=== PATIENT | female | born 1970 | race Caucasian/White ===

== ENCOUNTER 2018-07-12 02:57 | Emergency (ER) | payer MEDICAID ==
[2018-07-12 03:13] VITALS: TEMP 98.2; O2SAT 98
[2018-07-12] MEDS ORDERED: Sodium Chloride 0.9% 1,000 ML IV SCH (03:30)
--- NOTE | 2018-07-12 03:31 | ED PDOC ---
Arrival/HPI - General Chief Complaint: Abdominal Pain Time Seen by Provider: 07/12/18 03:09 - History of Present Illness Narrative History of Present Illness (Text): 07/12/18 03:26 48 yr old female w/ hx of HLD p/w headache, abdominal pain and chest pain. Pt notes waking up, followed by COFFMAN, mild, not worst of life, not sudden in onset. She notes first time occurence of headache, diffuse, for which she took motrin. She then noticed abdominal pain followed by upgoing chest pain. chest pain feels like a pressure, without radiation. She denies any FND, headache or neck stiffness. No rash. No pleuritic chest pain, hx of pe, blood clots, venous stasis, hx of cancer or surgery recently. No orthopnea, PND or leg swelling. No constipation or diarrhea. No dark or bloody stool. No urinary complaints. LMP was 2 weeks ago, normal. No recent travel. No trauma. No other complaints. Past Medical History - Provider Review Nursing Documentation Reviewed: Yes - Travel History Have you recently traveled outside [place] w/in the past 3 mons?: No - Infectious Disease Hx of Infectious Diseases: None - Cardiac Hx Hypertension: Yes - Psychiatric Hx Substance Use: No - Anesthesia Hx Anesthesia: No Family/Social History - Physician Review Nursing Documentation Reviewed: Yes Family/Social History: Unknown Family HX Smoking Status: Never Smoked Hx Alcohol Use: No Hx Substance Use: No Allergies/Home Meds Allergies/Adverse Reactions: Allergies No Known Allergies Allergy (Verified 07/12/18 03:04) Home Medications: Home Meds Medication Instructions Recorded Confirmed No Known Home Med 07/12/18 07/12/18 Review of Systems - Review of Systems Constitutional: Normal Eyes: Normal ENT: Normal Respiratory: Normal Cardiovascular: Chest Pain. absent: Palpitations, Edema, Calf Pain, CARMEN, Orthopnea, Syncope Gastrointestinal: Abdominal Pain, Vomiting. absent: Stool Changes, Constipation , Diarrhea, Hematochezia, Hematemesis, Anorexia, Food Intolerance Genitourinary Female: Normal Musculoskeletal: Normal Skin: Normal Neurological: Headache. absent: Dizziness, Focal Weakness, Gait Changes, Speech Changes, Facial Droop, Disequilibrium, Seizure Endocrine: Normal Hemo/Lymphatic: Normal Psychiatric: Normal Physical Exam Vital Signs Temp Pulse Resp BP Pulse Ox 07/12/18 03:13 98.2 F 72 17 122/73 98 Temperature: Afebrile Blood Pressure: Normal Pulse: Regular Respiratory Rate: Normal Appearance: Positive for: Well-Appearing, Non-Toxic, Comfortable Pain Distress: None Mental Status: Positive for: Alert and Oriented X 3 - Systems Exam Head: Present: Atraumatic, Normocephalic Pupils: Present: PERRL Extroacular Muscles: Present: EOMI Conjunctiva: Present: Normal Mouth: Present: Moist Mucous Membranes Neck: Present: Normal Range of Motion. No: Meningeal Signs, MIDLINE TENDERNESS , JVD, Lymphadenopathy Respiratory/Chest: Present: Clear to Auscultation, Good Air Exchange. No: Respiratory Distress, Accessory Muscle Use Cardiovascular: Present: Regular Rate and Rhythm, Normal S1, S2. No: Murmurs Abdomen: No: Tenderness, Distention, Peritoneal Signs Back: Present: Normal Inspection. No: CVA Tenderness Upper Extremity: Present: Normal Inspection. No: Cyanosis, Edema Lower Extremity: Present: Normal Inspection. No: Edema Neurological: Present: GCS=15, CN II-XII Intact, Speech Normal, Motor Func Grossly Intact, Normal Sensory Function, Normal Cerebellar Funct, Gait Normal Skin: Present: Warm, Dry, Normal Color. No: Rashes Psychiatric: Present: Alert, Oriented x 3, Normal Insight, Normal Concentration. No: Suicidal Ideation, Homicidal Ideation Medical Decision Making ED Course and Treatment: 07/12/18 03:33 48 yr old female w/ hx of HLD p/w abdominal pain, headache, chest pain. Abdominal pain: Nausea, x1 vomiting episode. Given no diarrhea, no dark or bloody stool, x1 vomiting episode- likely gastro or motrin associated. Abdomen non tender on exam. No urinary complaints. Headache: Not worst of life, not sudden in onset. Will CT for COFFMAN <6 hrs to rule out sub arach. No meningeal signs or neck stiff or fever. Chest pain: Heart score low: 3 pending trop. will seek trop and likely have pt follow up. PE low pretest wells, PERCed out. 07/12/18 03:56 EKG: Ordered, reviewed, and independently interpreted the EKG. Rate : 72 BPM Rhythm : NSR Interpretation : No STEMI CT Abdomen and Pelvis With Intravenous Contrast EXAM DATE/TIME: 07/12/2018 3:22 AM Dictated and Authenticated by: Arnoldo Small MD 07/12/2018 5:26 AM Eastern Time ([place] & [place]) IMPRESSION: No acute findings. CT Head Without Intravenous Contrast EXAM DATE/TIME: 07/12/2018 3:22 AM Dictated and Authenticated by: Arnoldo Small MD 07/12/2018 5:24 AM Eastern Time ([place] & [place]) IMPRESSION: No acute findings. 07/12/18 05:34: Chest X-ray read and interpreted by me shows no acute findings. 07/12/18 05:37 repeat neuro exam unremarkable pain improved Low risk heart score: to followup w/ PMD and outpt card as well as neuro. On reevaluation the patient is in no acute distress. I have discussed the results and plan with the patient, who expresses understanding. Patient given the opportunity to ask question, all questions were answered and there is agreement with the plan to discharge the patient home. Patient is stable for discharge. Patient was instructed to follow up with physician/clinic in 1-2 days or return if symptoms persist/worsen or new concerning symptoms arise. - Lab Interpretations Lab Results: 07/12/18 03:28 07/12/18 03:28 Lab Results 07/12/18 03:47: Urine Color Yellow, Urine Appearance Sl cloudy, Urine pH 7.5, Ur Specific [place] 1.015, Urine Protein Trace H, Urine Glucose (UA) Negative, Urine Ketones Negative, Urine Blood Trace-lysed H, Urine Nitrate Negative, Urine Bilirubin Negative, Urine Urobilinogen 0.2, Ur Leukocyte Esterase Negative , Urine RBC 0 - 2, Urine WBC Negative, Ur Epithelial Cells 4 - 5, Urine Bacteria Large, Urine Other Mucus 07/12/18 03:28: TSH 3rd Generation 0.98 07/12/18 03:28: Sodium 144, Chloride 107, Potassium 3.8, Carbon Dioxide 25, Anion Gap 16, BUN 22 H, Creatinine 0.9, Est GFR ( Amer) > 60, Est GFR ( Non-Af Amer) > 60, Random Glucose 121 H, Calcium 8.8, Magnesium 2.0, Total Bilirubin 0.3, AST 26, ALT 22, Alkaline Phosphatase 54, Troponin I < 0.01, Total Protein 7.7, Albumin 4.2, Globulin 3.5, Albumin/Globulin Ratio 1.2, Lipase 113 07/12/18 03:28: pO2 44, VBG pH 7.36, VBG pCO2 49.0, VBG HCO3 27.7, VBG Total CO2 29.2 H, VBG O2 Sat (Calc) 78.4 H, VBG Base Excess 1.5, VBG Potassium 3.6, Sodium 141.0, Chloride 108.0 H, Glucose 118 H, Lactate 0.6 L, FiO2 21.0, Venous Blood Potassium 3.6 07/12/18 03:28: WBC 4.4 L D, RBC 3.93, Hgb 11.3 L, Hct 34.3 L, MCV 87.3, MCH 28.8, MCHC 32.9, RDW 12.8, Plt Count 152, MPV 9.6, Gran % 60.0, Lymph % (Auto) 31.2, [place] % (Auto) 7.9 H, Eos % (Auto) 0.7 L, Baso % (Auto) 0.2, Gran # 2.66, Lymph # (Auto) 1.4, [place] # (Auto) 0.4, Eos # (Auto) 0.0, Baso # (Auto) 0.01 - RAD Interpretation Radiology Orders: 07/12/18 03:22 ABDOMEN & PELVIS [ABD & PELVIS IV CONTRAST ONLY] [CT] Stat HEAD W/O CONTRAST [CT] Stat 07/12/18 03:23 CHEST TWO VIEWS (PA/LAT) [RAD] Stat - Medication Orders Current Medication Orders: Sodium Chloride (Sodium Chloride 0.9%) 1,000 mls @ 100 mls/hr IV .Q10H MARITZA Last Admin: 07/12/18 03:39 Dose: 100 mls/hr eMAR Start Stop Document 07/12/18 03:39 SS (Rec: 07/12/18 03:39 SS [id number]) Intravenous Solution Start Date 07/12/18 Start Time 03:39 Discontinued Medications Metoclopramide HCl (Reglan) 10 mg IVP STAT STA Stop: 07/12/18 03:26 Last Admin: 07/12/18 03:38 Dose: 10 mg IVP Administration Document 07/12/18 03:38 SS (Rec: 07/12/18 03:39 SS [id number]) Charges for Administration # of IVP Administrations 1 Disposition/Present on Arrival - Present on Arrival Any Indicators Present on Arrival: No History of DVT/PE: No History of Uncontrolled Diabetes: No Urinary Catheter: No History of Decub. Ulcer: No History Surgical Site Infection Following: None - Disposition Have Diagnosis and Disposition been Completed?: Yes Diagnosis: Abdominal pain, Migraine headache, Chest pain Disposition: HOME/ ROUTINE Disposition Time: 05:48 Patient Problems: Current Active Problems Problem Status Onset Abdominal pain Acute Chest pain Acute Migraine headache Acute Condition: GOOD Discharge Instructions (ExitCare): Chest Pain (ED), Migraine Headache (DC), Migraine Headaches in Adults, Headache, Adult, Viral Gastroenteritis, Adult (DC) Additional Instructions: ERIBERTO JOHNSON, thank you for letting us take care of you today. Your provider was Matthew Johnson and you were treated for ABDOMINAL PAIN. The emergency medical care you received today was directed at your acute symptoms. If you were prescribed any medication, please fill it and take as directed. It may take several days for your symptoms to resolve. Return to the Emergency Department if your symptoms worsen, do not improve, or if you have any other problems. Please contact your doctor or call one of the physicians/clinics you have been referred to that are listed on the Patient Visit Information form that is included in your discharge packet. Bring any paperwork you were given at discharge with you along with any medications you are taking to your follow up visit. Our treatment cannot replace ongoing medical care by a primary care provider outside of the emergency department. Thank you for allowing the [facility] team to be part of your care today. If you had an X-Ray or CT scan: A Radiologist will review the ED reading if any change in treatment is needed we will contact you. If you had a blood, urine, or wound culture: It will take several days for the results, if any change in treatment is needed we will contact you. If you had an STI test: It will take 48 hours for the results. Please call after 1 week if you have not heard back. Referrals: Raheem Thomas MD [Primary Care Provider] - Follow up with primary Jose Wade MD [Staff Provider] - Follow up with primary Angelito Rincon MD [Staff Provider] - Follow up with primary Richard Valencia MD [Staff Provider] - Follow up with primary Forms: [employer] (Lao)
[2018-07-12 03:38] LABS: BASO # 0.01 K/mm3 (0.0-2.0); BASO % 0.2 % (0.0-3.0); EOS % 0.7 % (1.5-5.0); GRAN # 2.66 (1.4-6.5); HEMOGLOBIN 11.3 g/dL (12.0-16.0); LYMPH # 1.4 (1.2-3.4); LYMPH % 31.2 % (22.0-35.0); MEAN CELL VOLUME 87.3 fl (80.0-105.0); MEAN CORPUSCULAR HEMOGLOBIN 28.8 pg (25.0-35.0); MEAN CORPUSCULAR HGB CONC 32.9 g/dl (31.0-37.0); MEAN PLATELET VOLUME 9.6 fl (7.0-11.0); MONO # 0.4 (0.1-0.6); MONO % 7.9 % (1.0-6.0); RBC 3.93 10^6/uL (3.5-6.1); RED CELL DISTRIBUTION WIDTH 12.8 % (11.5-14.5)
[2018-07-12 03:41] LABS: VENOUS BLOOD GAS BASE EXCESS 1.5 mmol/L (0.0-2.0); VENOUS BLOOD GAS PO2 44 mm/Hg (30-55); VENOUS BLOOD PH 7.36 (7.32-7.43)
[2018-07-12 03:45] LABS: WHITE BLOOD COUNT 4.4 10^3/ul (4.5-11.0)
[2018-07-12 03:56] LABS: BLOOD UREA NITROGEN 22 mg/dL (7-21); GFR NON-AFRICAN AMERICAN > 60
[2018-07-12 03:57] LABS: ALB/GLOB RATIO 1.2 (1.1-1.8); ALBUMIN 4.2 g/dL (3.0-4.8); ALT/SGPT 22 U/L (7-56); AST/SGOT 26 U/L (14-36); CALCIUM 8.8 mg/dL (8.4-10.5); LIPASE 113 U/L (23-300)
[2018-07-12 04:07] LABS: TROPONIN I < 0.01 ng/mL
[2018-07-12 04:08] LABS: PH,URINE 7.5 (4.7-8.0); URINE BILIRUBIN NEGATIVE (NEGATIVE); URINE BLOOD TRACE-LYSED (NEGATIVE); URINE GLUCOSE (UA) NEGATIVE (NEGATIVE); URINE LEUKOCYTE ESTERASE NEGATIVE Leu/uL (NEGATIVE); URINE PROTEIN TRACE mg/dL (<30 mg/dL); URINE UROBILINOGEN 0.2 E.U./dL (<1 E.U./dL)
[2018-07-12] MEDS ORDERED: Iohexol 350 MG/100 ML VIAL ONE (04:18)
[2018-07-12 04:36] LABS: URINE APPEARANCE SL CLOUDY (CLEAR); URINE COLOR YELLOW (YELLOW)
[2018-07-12 04:47] LABS: URINE RBC 0 - 2 /hpf (0-2); URINE WBC NEGATIVE /hpf (0-6)
[2018-07-12 04:49] LABS: URINE BACTERIA LARGE (NEG)
[2018-07-12 06:00] VITALS: BP 121/73; PULSE 78; RESP 18
--- NOTE | 2018-07-12 08:06 | RAD ---
HISTORY: COMPARISON: 12/21/2016. TECHNIQUE: Chest PA and lateral FINDINGS: LINES AND TUBES: None. LUNG AND PLEURA: The lungs are well inflated and clear. No pleural effusion or pneumothorax. HEART AND MEDIASTINUM: The heart is not enlarged. The hilar and mediastinal contours are within normal limits. SKELETAL STRUCTURES: The bony structures are within normal limits for the patient's age. VISUALIZED UPPER ABDOMEN: Normal. OTHER FINDINGS: None. IMPRESSION: No active pulmonary disease.
--- NOTE | 2018-07-12 09:41 | CT ---
Date of service: 07/12/2018 PROCEDURE: CT HEAD WITHOUT CONTRAST. HISTORY: headache COMPARISON: None available. TECHNIQUE: Axial computed tomography images were obtained through the head/brain without intravenous contrast. Radiation dose: Total exam DLP = 831 mGy-cm. This CT exam was performed using one or more of the following dose reduction techniques: Automated exposure control, adjustment of the mA and/or kV according to patient size, and/or use of iterative reconstruction technique. FINDINGS: HEMORRHAGE: No intracranial hemorrhage. BRAIN: No mass effect or edema. No atrophy or chronic microvascular ischemic changes. VENTRICLES: Unremarkable. No hydrocephalus. CALVARIUM: Unremarkable. PARANASAL SINUSES: Unremarkable as visualized. No significant inflammatory changes. MASTOID AIR CELLS: Unremarkable as visualized. No inflammatory changes. OTHER FINDINGS: The report concurs with the preliminary [facility] report IMPRESSION: No acute findings
--- NOTE | 2018-07-12 11:27 | CT ---
Date of service: 07/12/2018 PROCEDURE: CT Abdomen and Pelvis with contrast HISTORY: abdominal pain, epigastric COMPARISON: None. TECHNIQUE: Contrast dose: 100 cc of Omni 350 Radiation dose: Total exam DLP = 1154 mGy-cm. This CT exam was performed using one or more of the following dose reduction techniques: Automated exposure control, adjustment of the mA and/or kV according to patient size, and/or use of iterative reconstruction technique. FINDINGS: LOWER THORAX: Unremarkable. LIVER: Unremarkable. No gross lesion or ductal dilatation. GALLBLADDER AND BILE DUCTS: Unremarkable. PANCREAS: Unremarkable. No gross lesion or ductal dilatation. SPLEEN: Unremarkable. ADRENALS: Unremarkable. No mass. KIDNEYS AND URETERS: Unremarkable. No hydronephrosis. No solid mass. VASCULATURE: Unremarkable. No aortic aneurysm. BOWEL: Unremarkable. No obstruction. No gross mural thickening. APPENDIX: Normal appendix. PERITONEUM: Unremarkable. No free fluid. No free air. LYMPH NODES: Unremarkable. No enlarged lymph nodes. BLADDER: Unremarkable. REPRODUCTIVE: Unremarkable. BONES: No acute fracture. OTHER FINDINGS: The report concurs with the preliminary [facility] report IMPRESSION: No acute intra-abdominal findings
--- NOTE | 2018-07-12 17:52 | CARD ---
APPROVED REPORT Date of service: 07/12/2018 EKG Measurement Heart [id number] <Conclusion> Normal sinus rhythm Normal ECG
== END 2018-07-12 06:00 | disposition home or self-care (01) ==
LOC: ED 02:57
DX: G43.909 Migraine, unspecified, not intractable, without status migrainosus (principal); R07.9 Chest pain, unspecified; R10.13 Epigastric pain
CPT/HCPCS: 70450; 71046; 74177; 80053; 81001; 82803; 83690; 83735; 84443; 84484; 85025; 93005; 96374; 99283; J2765; J7030; Q9967

== ENCOUNTER 2019-03-12 19:51 | Emergency (ER) | payer MEDICAID ==
[2019-03-12 20:21] VITALS: RESP 18; TEMP 98; O2SAT 98
[2019-03-12] MEDS ORDERED: Sodium Chloride 0.9% 1,000 ML IV STA (21:08)
[2019-03-12 21:41] LABS: BASO # 0.01 K/mm3 (0.0-2.0); BASO % 0.2 % (0.0-3.0); EOS # 0.1 (0.0-0.7); EOS % 1.8 % (1.5-5.0); HEMOGLOBIN 11.2 g/dL (12.0-16.0); LYMPH # 2.3 (1.2-3.4); LYMPH % 52.1 % (22.0-35.0); MEAN CELL VOLUME 89.5 fl (80.0-105.0); MEAN CORPUSCULAR HEMOGLOBIN 28.8 pg (25.0-35.0); MEAN CORPUSCULAR HGB CONC 32.2 g/dl (31.0-37.0); MEAN PLATELET VOLUME 9.8 fl (7.0-11.0); MONO # 0.4 (0.1-0.6); MONO % 8.5 % (1.0-6.0); RBC 3.89 10^6/uL (3.5-6.1); RED CELL DISTRIBUTION WIDTH 13.2 % (11.5-14.5); WHITE BLOOD COUNT 4.5 10^3/uL (4.5-11.0)
[2019-03-12 21:57] LABS: ALB/GLOB RATIO 1.3 (1.1-1.8); ALBUMIN 4.3 g/dL (3.0-4.8); ALT/SGPT 20 U/L (7-56); AST/SGOT 22 U/L (14-36); BLOOD UREA NITROGEN 11 mg/dL (7-21); CALCIUM 8.9 mg/dL (8.4-10.5); GFR NON-AFRICAN AMERICAN > 60
[2019-03-12 22:02] LABS: URINE BILIRUBIN NEGATIVE (NEGATIVE); URINE BLOOD TRACE-INTACT (NEGATIVE); URINE GLUCOSE (UA) NEGATIVE (NEGATIVE); URINE LEUKOCYTE ESTERASE NEGATIVE Leu/uL (NEGATIVE); URINE PROTEIN NEGATIVE mg/dL (<30 mg/dL); URINE UROBILINOGEN 0.2 E.U./dL (<1 E.U./dL)
[2019-03-12 22:04] LABS: URINE APPEARANCE CLEAR (CLEAR); URINE COLOR YELLOW (YELLOW)
--- NOTE | 2019-03-12 22:15 | ED PDOC ---
Arrival/HPI - General Chief Complaint: Back Pain Time Seen by Provider: 03/12/19 20:21 Historian: Patient - History of Present Illness Narrative History of Present Illness (Text): 03/12/19 22:13 49-year-old female with a history of kidney stones presents today with a 2-day history of bilateral flank pain. Patient denies any trauma or injury. Patient states she took Motrin this morning without improvement. She denies abdominal pain. No nausea vomiting diarrhea constipation. Patient denies dysuria urinary frequency or urgency. Patient denies any hematuria. No chest pain or shortness of breath. No dizziness or weakness. No other complaints. Past Medical History - Provider Review Nursing Documentation Reviewed: Yes - Travel History Have you recently traveled outside [place] w/in the past 3 mons?: No - Infectious Disease Hx of Infectious Diseases: None - Cardiac Hx Cardiac Disorders: Yes Hx Hypertension: Yes - Genitourinary/Gynecological Hx Genitourinary Disorders: Yes Other/Comment: kidney stones - Psychiatric Hx Substance Use: No - Anesthesia Hx Anesthesia: No Family/Social History - Physician Review Nursing Documentation Reviewed: Yes Family/Social History: Unknown Family HX Smoking Status: Never Smoked Hx Alcohol Use: No Hx Substance Use: No Allergies/Home Meds Allergies/Adverse Reactions: Allergies No Known Allergies Allergy (Verified 07/12/18 03:04) Home Medications: Home Meds Medication Instructions Recorded Confirmed Aspirin [Adult Low Dose Aspirin EC] 81 mg PO DAILY 03/12/19 03/12/19 Review of Systems - Review of Systems Constitutional: absent: Fatigue, Fevers Respiratory: absent: SOB, Cough Cardiovascular: absent: Chest Pain, Palpitations Gastrointestinal: absent: Abdominal Pain, Constipation, Diarrhea, Nausea, Vomiting Genitourinary Female: absent: Dysuria, Frequency, Hematuria, Urine Output Changes Musculoskeletal: Back Pain. absent: Arthralgias, Neck Pain Skin: absent: Rash, Pruritis Neurological: absent: Headache, Dizziness Psychiatric: absent: Anxiety, Depression, Suicidal Ideation Physical Exam Vital Signs Reviewed: Yes Vital Signs Temp Pulse Resp BP Pulse Ox 03/12/19 20:19 98.0 F 72 18 142/75 98 Temperature: Afebrile Blood Pressure: Normal Pulse: Regular Respiratory Rate: Normal Appearance: Positive for: Well-Appearing, Non-Toxic, Comfortable Pain Distress: None Mental Status: Positive for: Alert and Oriented X 3 - Systems Exam Head: Present: Atraumatic Mouth: Present: Moist Mucous Membranes Neck: Present: Normal Range of Motion Respiratory/Chest: Present: Clear to Auscultation, Good Air Exchange. No: Respiratory Distress, Accessory Muscle Use Cardiovascular: Present: Regular Rate and Rhythm, Normal S1, S2. No: Murmurs Abdomen: No: Tenderness, Distention, Peritoneal Signs, Rebound, Guarding Back: Present: Normal Inspection, Paraspinal Tenderness (+ bilateral paraspinal tenderness lumbar.). No: CVA Tenderness, Midline Tenderness Upper Extremity: Present: Normal Inspection, Normal ROM Lower Extremity: Present: Normal Inspection, Normal ROM Neurological: Present: GCS=15, Speech Normal Skin: Present: Warm, Dry, Normal Color. No: Rashes Psychiatric: Present: Alert, Oriented x 3 Medical Decision Making ED Course and Treatment: 03/12/19 22:15 Patient is nontoxic well appearing with stable vital signs presenting with bilateral flank pain x2 days CBC wnl CMP wnl Lipase wnl Urinalysis trace blood CAT scan: FINDINGS: Bilateral basilar hypoventilatory pulmonary changes. Small sliding hiatal hernia. Fat containing umbilical hernia without incarceration. Mildly distended bladder. Bilateral fullness of the collecting systems which is probably secondary to a distended bladder. Normal unenhanced liver. Normal gallbladder and extrahepatic biliary system. Normal unenhanced spleen. Normal pancreas. Normal bilateral adrenal glands. Normal size of the right kidney. There is no right renal mass. There are no right renal calculi. Normal size of the left kidney. There is no left renal mass. There are no left renal calculi. Normal visualized stomach. Normal small intestine. Normal colon. The appendix is visualized and appears normal. There is no demonstrated peritoneal fluid. Normal abdominal aorta. Normal inferior vena cava. Normal retroperitoneum. Normal urinary bladder. There is no pelvic mass lesion or lymphadenopathy. There is no pelvic fluid. Normal abdominal wall. Normal osseous structures. IMPRESSION: Bilateral basilar hypoventilatory pulmonary changes. Small sliding hiatal hernia. Fat containing umbilical hernia without incarceration. Mildly distended bladder. Bilateral fullness of the collecting systems which is probably secondary to a distended bladder. Electronically signed on Mar 13, 2019 12:38:56 AM EDT by: Irene Lipscomb M.D., Certified by ABR, MSK, Neuroradiology Patient reassessment: pt feeling better after medications. vitals stable. bladder scan; pre void; 471 post void; 58 Discussed all results with patient and family in depth. I discussed CAT scan results in depth with the family members and advised patient to follow-up with the urologist within the next 2 days. I have advised immediate return if symptoms worsen persist or if new concerning symptoms develop. I have advised taking Motrin and a muscle relaxer as prescribed. Patient verbalizes understanding of discharge instructions and need for immediate followup. All aspects of this case were discussed the attending of record. Impression: back pain Motrin every 6 hours as needed for pain Flexeril 1 tablet every 8 hours as needed for muscle spasms: May cause drowsiness Follow-up with the urologist within the next 2 days Increase fluids Follow up with primary care physician within the next 2 days Return immediately if symptoms worsen persist or if new symptoms develop: High fevers, increasing pain, vomiting, diarrhea or any other concerning symptoms develop Reassessment Condition: Re-examined, Improved - Lab Interpretations Lab Results: Total Bilirubin 0.6 mg/dL (0.2-1.3) 03/12/19 21:36 AST 22 U/L (14-36) 03/12/19 21:36 ALT 20 U/L (7-56) 03/12/19 21:36 Alkaline Phosphatase 57 U/L (38-126) 03/12/19 21:36 Total Protein 7.5 g/dL (5.8-8.3) 03/12/19 21:36 Albumin 4.3 g/dL (3.0-4.8) 03/12/19 21:36 Globulin 3.3 gm/dL 03/12/19 21:36 Albumin/Globulin Ratio 1.3 (1.1-1.8) 03/12/19 21:36 Urine Color Yellow (YELLOW) 03/12/19 21:30 Urine Appearance Clear (CLEAR) 03/12/19 21:30 Urine pH 6.0 (4.7-8.0) 03/12/19 21:30 Ur Specific [place] 1.015 (1.005-1.035) 03/12/19 21:30 Urine Protein Negative mg/dL (<30 mg/dL) 03/12/19 21:30 Urine Glucose (UA) Negative mg/dL (NEGATIVE) 03/12/19 21:30 Urine Ketones Negative mg/dL (NEGATIVE) 03/12/19 21:30 Urine Blood Trace-intact (NEGATIVE) H 03/12/19 21:30 Urine Nitrate Negative (NEGATIVE) 03/12/19 21:30 Urine Bilirubin Negative (NEGATIVE) 03/12/19 21:30 Urine Urobilinogen 0.2 E.U./dL (<1 E.U./dL) 03/12/19 21:30 Ur Leukocyte Esterase Negative Pauly/uL (NEGATIVE) 03/12/19 21:30 - RAD Interpretation Radiology Orders: 03/12/19 21:08 CHEST PORTABLE [RAD] Stat 03/12/19 21:53 ABD & PELVIS W/O PO OR IV CONT [CT] Stat - Medication Orders Current Medication Orders: Discontinued Medications Sodium Chloride (Sodium Chloride 0.9%) 1,000 mls @ 999 mls/hr IV .Q1H1M STA Stop: 03/12/19 22:08 Last Admin: 03/12/19 21:54 Dose: 999 mls/hr eMAR Start Stop Document 03/12/19 21:54 SS (Rec: 03/12/19 21:54 SS [id number]) Intravenous Solution Start Date 03/12/19 Start Time 21:54 End Date 03/12/19 End time 22:54 Total Infusion Time 60 Ketorolac Tromethamine (Toradol) 30 mg IVP STAT STA Stop: 03/12/19 21:09 Last Admin: 03/12/19 21:54 Dose: 30 mg MAR Pain Assessment Document 03/12/19 21:54 SS (Rec: 03/12/19 21:54 SS [id number]) Pain Reassessment Is this a pain reassessment? No Presence of Pain Presence of Pain Yes IVP Administration Document 03/12/19 21:54 SS (Rec: 03/12/19 21:54 SS [id number]) Charges for Administration # of IVP Administrations 1 Disposition/Present on Arrival - Present on Arrival Any Indicators Present on Arrival: No History of DVT/PE: No History of Uncontrolled Diabetes: No Urinary Catheter: No History of Decub. Ulcer: No History Surgical Site Infection Following: None - Disposition Have Diagnosis and Disposition been Completed?: Yes Diagnosis: Back pain Disposition: HOME/ ROUTINE Disposition Time: 22:59 Patient Plan: Discharge Patient Problems: Current Active Problems Problem Status Onset Back pain Acute Condition: GOOD Discharge Instructions (ExitCare): Low Back Pain (DC) Additional Instructions: Motrin every 6 hours as needed for pain Flexeril 1 tablet every 8 hours as needed for muscle spasms: May cause drowsiness Follow-up with the urologist within the next 2 days Increase fluids Follow up with primary care physician within the next 2 days Return immediately if symptoms worsen persist or if new symptoms develop: High fevers, increasing pain, vomiting, diarrhea or any other concerning symptoms de velop Prescriptions: Cyclobenzaprine [Cyclobenzaprine HCl] 10 mg PO Q8 #10 tab Ibuprofen [Motrin] 600 mg PO Q6H PRN #20 tab PRN Reason: pain/fever reduction Referrals: Raheem Thomas MD [Staff Provider] - Follow up with primary Suhas Gauthier MD [Staff Provider] - Follow up with primary Evangelist Adler MD [Staff Provider] - Follow up with primary Forms: [employer] (Croatian), WORK NOTE
[2019-03-12 22:16] LABS: URINE BACTERIA FEW /hpf
[2019-03-13 02:11] VITALS: BP 110/65; PULSE 65
--- NOTE | 2019-03-13 08:45 | CT ---
Date of service: 03/12/2019 PROCEDURE: CT Abdomen and Pelvis without intravenous contrast HISTORY: b/l flank pain hx of stones COMPARISON: December 21, 2016 and 07/12/2018. Serial CT scans abdomen and pelvis. TECHNIQUE: Unenhanced. Neither IV nor oral contrast administered Radiation dose: Total exam DLP = 994.81 mGy-cm. This CT exam was performed using one or more of the following dose reduction techniques: Automated exposure control, adjustment of the mA and/or kV according to patient size, and/or use of iterative reconstruction technique. FINDINGS: LOWER THORAX: Unremarkable. LIVER: Unremarkable. No gross lesion or ductal dilatation. GALLBLADDER AND BILE DUCTS: Unremarkable. PANCREAS: Unremarkable. No gross lesion or ductal dilatation. SPLEEN: Unremarkable. ADRENALS: Unremarkable. No mass. KIDNEYS AND URETERS: Unremarkable. No hydronephrosis. No solid mass. VASCULATURE: Unremarkable. No aortic aneurysm. No atherosclerotic calcification or mural plaque present. BOWEL: Constipation without fecal impaction or obstruction. APPENDIX: A normal appendix is visualized in it's entirety. PERITONEUM: Unremarkable. No free fluid. No free air. LYMPH NODES: Unremarkable. No enlarged lymph nodes. BLADDER: Unremarkable. REPRODUCTIVE: Unremarkable. BONES: No acute fracture. OTHER FINDINGS: None. IMPRESSION: No acute or significant findings related to/ accounting for the clinical presentation. Additional benign and/or incidental findings described above. No significant interval change compared to the prior examination(s). Concordant results (preliminary interpretation) provided by [employer]. Procedure Completed: 23:01. Preliminary Report: Interpreted and electronically signed: 00:38. Final Interpretation: 08:41.
--- NOTE | 2019-03-13 12:27 | RAD ---
Date of service: 03/12/2019 HISTORY: Back pain. COMPARISON: 07/12/2018. FINDINGS: LUNGS: No active pulmonary disease. PLEURA: No significant pleural effusion identified, no pneumothorax apparent. CARDIOVASCULAR: No atherosclerotic calcification present No radiographic findings to suggest acute or significant cardiovascular disease. OSSEOUS STRUCTURES: No significant abnormalities. VISUALIZED UPPER ABDOMEN: Normal. OTHER FINDINGS: None. IMPRESSION: No active disease. No significant interval change compared to the prior examination(s).
== END 2019-03-13 02:12 | disposition home or self-care (01) ==
LOC: ED 19:51
DX: M54.9 Dorsalgia, unspecified (principal)
CPT/HCPCS: 71045; 74176; 80053; 81001; 81025; 85025; 87086; 96361; 96374; 99283; J1885; J7030